=== PATIENT | male | born 1995 | race Caucasian/White ===

== ENCOUNTER 2018-05-05 20:35 | Emergency (ER) | payer OTHER ==
[2018-05-05 20:54] VITALS: O2SAT 100
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
[2018-05-05] MEDS ORDERED: NORCO 5/325 MG ONE (20:59)
[2018-05-05] MEDS ORDERED: XYLOCAINE 1% HCL 20 ML MDV ONE (21:00)
[2018-05-05] MEDS ORDERED: Adacel Vial IM ONE (21:00)
[2018-05-05] MEDS: Adacel Vial IM ONE (21:02)
[2018-05-05] MEDS: NORCO 5/325 MG PO ONE (21:03)
[2018-05-05] MEDS: XYLOCAINE 1% HCL 20 ML MDV IJ ONE (21:03)
[2018-05-05] MEDS ORDERED: BACIGUENT PACKET ONE (21:25)
[2018-05-05] MEDS: BACIGUENT PACKET TP ONE (21:27)
[2018-05-05 21:57] VITALS: BP 90/71; PULSE 70
== END 2018-05-05 22:00 | disposition home or self-care (01) ==
LOC: ED 20:35
DX: S61.211A Laceration without foreign body of left index finger without damage to nail, initial encounter (principal)
CPT/HCPCS: 12002; 90471; 90715; 96372; 99284; A9270-GY

== ENCOUNTER 2018-08-16 21:59 | Emergency (ER) | payer OTHER ==
[2018-08-16] MEDS ORDERED: TORAdol 30 mg Injection ×2 (22:22)
[2018-08-16] MEDS: TORAdol 30 mg Injection IM ×2 (22:24)
[2018-08-17] MEDS ORDERED: MORPHINE SULFATE 10 MG/ML ×2 (00:41)
[2018-08-17] MEDS ORDERED: Sodium Chloride 0.9% 1000 ML 1,000 ML (00:42)
[2018-08-17] MEDS ORDERED: VERSED 5 MG/5 ML ×2 (00:42)
[2018-08-17] MEDS: MORPHINE SULFATE 10 MG/ML IV ×2 (00:48)
[2018-08-17] MEDS: Sodium Chloride 0.9% 1000 ML 1,000 ML IV ×2 (00:49)
[2018-08-17] MEDS: VERSED 5 MG/5 ML IV ×2 (00:56)
== END 2018-08-17 02:30 | disposition home or self-care (01) ==
LOC: ED 08-17 02:30
CPT/HCPCS: 36000; 73140; 93041; 94799; 96372; 96374; 96375; J1885; J2250; J2270

== ENCOUNTER 2024-06-18 17:40 | Emergency (ER) | payer OTHER ==
[2024-06-18 17:55] VITALS: TEMP 98.7; O2SAT 99
[2024-06-18] MEDS ORDERED: TORAdol 30 mg Injection ONE (18:06)
[2024-06-18] MEDS: TORAdol 30 mg Injection IM ONE (18:09)
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
[2024-06-18 18:56] VITALS: BP 123/87; PULSE 80; RESP 16
--- NOTE | 2024-06-18 20:51 | XRAY ---
Indication: Pain following injury. Comparison: None 3 view right hand obtained. No bony, articular, or soft tissue abnormalities.
--- NOTE | 2024-06-18 20:51 | XRAY ---
Indication: Pain following injury. Comparison: None 3 view right wrist obtained. No bony, articular, or soft tissue abnormalities.
== END 2024-06-18 18:45 | disposition home or self-care (01) ==
LOC: ED 17:40
DX: S63.501A Unspecified sprain of right wrist, initial encounter (principal); S60.221A Contusion of right hand, initial encounter; M25.531 Pain in right wrist; M79.641 Pain in right hand; V00.138A Other skateboard accident, initial encounter; Y93.51 Activity, roller skating (inline) and skateboarding; F17.200 Nicotine dependence, unspecified, uncomplicated
CPT/HCPCS: 73110; 73130; 96372; 99283; J1885; L3908